=== PATIENT | female | born 1960 ===

== ENCOUNTER → 2021-05-10 | Day surgery (SDC) | payer MEDICARE ==
[~2021-05-10] MED LIST: ALL DAY ALLERGY10 M2 PO; AMBIEN10 MG PO; FEXMID7.5 MG PO; HYDROCHLOROTHIA25 MG PO; LASIX 40 MG TAB40 MG PO; NEURONTIN300 MG PO; OXYCODONE HCL10 MG PO; PHYSICIANS1000 MCG/1 IM; PRAVASTATIN SOD20 MG PO; SINGULAIR10 MG PO; SYMBICORT 160-1 INHA INH; VENTOLIN/PROVE0.5 ML INH; VOLTAREN ARTHRI20 GM TOP; XANAX1 MG PO; ZESTRIL 40 MG T40 MG PO
== END | disposition home or self-care (01) ==
LOC: OR 09:19
DX: M47.26 Other spondylosis with radiculopathy, lumbar region (principal); M47.16 Other spondylosis with myelopathy, lumbar region; M96.1 Postlaminectomy syndrome, not elsewhere classified; M81.0 Age-related osteoporosis without current pathological fracture; I10 Essential (primary) hypertension; F11.20 Opioid dependence, uncomplicated; F17.210 Nicotine dependence, cigarettes, uncomplicated; Z20.822 Contact with and (suspected) exposure to COVID-19
CPT/HCPCS: 76000; J1040; U0002